=== PATIENT | female | born 1995 | race African-American/Black ===

== ENCOUNTER 2018-09-17 12:05 | Emergency (ER) | payer OTHER ==
--- NOTE | 2018-09-17 13:24 | ER Document Report ---
ED Medical Screen (RME) - General Chief Complaint: Vaginal Bleeding Stated Complaint: VAGINAL BLEEDING Time Seen by Provider: 09/17/18 13:20 Mode of Arrival: Ambulatory Information source: Patient Notes: Patient presents to the emergency department with complaints of heavy vaginal bleeding, pad every hour for the past week. She reports she is 4 months. She had heavy bleeding after the child was born a condo tapered off and then after she had sex recently started bleeding heavenly. Patient ports she feels tired but denies other symptoms such as fever vomiting diarrhea. Patient reports she saw her HAND EMBROIDERER at her 6-week appointment but has not seen them since then. I have greeted and performed a rapid initial assessment of this patient. A comprehensive ED assessment and evaluation of the patient, analysis of test results and completion of the medical decision making process will be conducted by additional ED providers. Dictation of this chart was performed using voice recognition software; therefore, there may be some unintended grammatical errors. TRAVEL OUTSIDE OF THE [place] IN LAST 30 DAYS: No - Related Data Allergies/Adverse Reactions: No Known Allergies Allergy (Verified 09/17/18 13:07) Physical Exam - Vital signs Vitals: Temp Pulse Resp BP Pulse Ox 98.1 F 71 14 140/82 H 100 09/17/18 12:35 09/17/18 12:35 09/17/18 12:35 09/17/18 12:35 09/17/18 12:35 Course - Vital Signs Vital signs: Temp Pulse Resp BP Pulse Ox 98.1 F 71 14 140/82 H 100 09/17/18 12:35 09/17/18 12:35 09/17/18 12:35 09/17/18 12:35 09/17/18 12:35
[2018-09-17 13:47] LABS: ABSOLUTE EOSINOPHILS # (AUTO) 0.1 10^3/uL (0.0-0.6); ABSOLUTE LYMPHOCYTES (AUTO) 1.8 10^3/uL (0.5-4.7); ABSOLUTE MONOCYTES (AUTO) 0.4 10^3/uL (0.1-1.4); ABSOLUTE NEUT (AUTO) 3.7 10^3/uL (1.7-8.2); BASOPHILS % (AUTO) 0.6 % (0-2); EOSINOPHILS % (AUTO) 1.2 % (0-6); HEMATOCRIT 33.8 % (36.0-47.0); HEMOGLOBIN 11.3 g/dL (12.0-15.5); LYMPHOCYTES % (AUTO) 29.3 % (13-45); MEAN CORPUSCULAR HEMOGLOBIN 27.7 pg (27.0-33.4); MEAN CORPUSCULAR HGB CONC 33.5 g/dL (32.0-36.0); MEAN CORPUSCULAR VOLUME 83 fl (80-97); MONOCYTES % (AUTO) 7.4 % (3-13); PLATELET COUNT 325 10^3/uL (150-450); RED BLOOD COUNT 4.09 10^6/uL (3.72-5.28); RED CELL DISTRIBUTION WIDTH 13.7 % (11.5-14.0); SEGMENTED NEUTROPHILS % (AUTO) 61.5 % (42-78); TOTAL CELLS COUNTED % (AUTO) 100 %; WHITE BLOOD COUNT 6.1 10^3/uL (4.0-10.5)
[2018-09-17 14:09] LABS: ALANINE AMINOTRANSFERASE 23 U/L (9-52); ALBUMIN 3.7 g/dL (3.5-5.0); ALKALINE PHOSPHATASE 70 U/L (38-126); ANION GAP 8 (5-19); ASPARTATE AMINO TRANSFERASE 21 U/L (14-36); BILIRUBIN,DIRECT 0.1 mg/dL (0.0-0.4); BILIRUBIN,TOTAL 0.5 mg/dL (0.2-1.3); BLOOD UREA NITROGEN 10 mg/dL (7-20); CALCIUM 9.5 mg/dL (8.4-10.2); CARBON DIOXIDE 28 mmol/L (22-30); CHLORIDE 107 mmol/L (98-107); GLUCOSE 75 mg/dL (75-110); POTASSIUM 3.8 mmol/L (3.6-5.0); SODIUM 142.7 mmol/L (137-145)
--- NOTE | 2018-09-17 15:50 | ER Document Report ---
ED General - General Chief Complaint: Vaginal Bleeding Stated Complaint: VAGINAL BLEEDING Time Seen by Provider: 09/17/18 13:20 Mode of Arrival: Ambulatory TRAVEL OUTSIDE OF THE [place] IN LAST 30 DAYS: No - HPI Notes: Patient is a 22-year-old female who presents to the emergency department complaining of heavy vaginal bleeding increased over the past week, but has had bleeding intermittently for the past 4 months since giving . Patient states that she had a full-term without any complications aside from hypertension. She is not currently breast-feeding. Patient states that she did have heavy bleeding about 4 years ago and was placed on control at that time. Patient states that she is going through about 1 pad per hour at this time. She is otherwise eating and drinking without difficulty. She is urinating normally and having normal bowel movements. No other concerns or complaints. No concern of STD/STI. Denies any headache, fever, neck pain, URI, sore throat, chest pain, palpitations, syncope, cough, shortness of breath, wheeze, dyspnea, abdominal pain, nausea/vomiting/diarrhea, urinary retention, dysuria, hematuria, back pain, or rash. - Related Data Allergies/Adverse Reactions: No Known Allergies Allergy (Verified 09/17/18 13:07) Past Medical History - General Information source: Patient - Social History Smoking Status: Never Smoker Chew tobacco use (# tins/day): No Frequency of alcohol use: None Drug Abuse: None Family History: Reviewed & Not Pertinent Patient has suicidal ideation: No Patient has homicidal ideation: No Renal/ Medical History: Denies: Hx Peritoneal Dialysis Review of Systems - Review of Systems -: Yes All other systems reviewed and negative Physical Exam - Vital signs Vitals: Temp Pulse Resp BP Pulse Ox 98.1 F 71 14 140/82 H 100 09/17/18 12:35 09/17/18 12:35 09/17/18 12:35 09/17/18 12:35 09/17/18 12:35 - Notes Notes: PHYSICAL EXAMINATION: GENERAL: Well-appearing, well-nourished and in no acute distress. EYES: Pupils equal round and reactive to light, extraocular movements intact, sclera anicteric, conjunctiva are normal. NECK: Normal range of motion, supple without lymphadenopathy LUNGS: Breath sounds clear to auscultation bilaterally and equal. No wheezes rales or rhonchi. HEART: Regular rate and rhythm without murmurs, rubs, gallops. ABDOMEN: Soft, nontender, nondistended abdomen. No guarding, no rebound. No masses appreciated. Normal bowel sounds present. No CVA tenderness bilaterally. : deferred Musculoskeletal: FROM to passive/active. Strength 5+/5. Extremities: No cyanosis, clubbing, or edema b/l. Peripheral pulses 2+. Capillary refill less than 3 seconds. NEUROLOGICAL: Normal speech, normal gait. PSYCH: Normal mood, normal affect. SKIN: Warm, Dry, normal turgor, no rashes or lesions noted. Course - Re-evaluation Re-evalutation: 09/17/18 17:41 I did speak with Dr[address] Wilde OBGYN, who would recommend depo shot 150mg IM. Patient is an afebrile, well-hydrated, 22-year-old female who presents to the ED with dysmenorrhea. Vitals are acceptable without any significant tachycardia, tachypnea, or hypoxia. PE is otherwise unremarkable. CBC (hgb 11.3, mild low), CMP, urinalysis, and hCG are unremarkable for any acute pathology. Patient is nontoxic-appearing is tolerating p.o. without any difficulties. Transvaginal ultrasound was also acceptable. Pt's abd is soft and non-tender. No other labs or imaging warranted at this time based on H&P. Low suspicion/risk for acute appendicitis, bowel obstruction, acute cholecystitis, acute cholangitis, per forated diverticulitis, incarcerated hernia, pancreatitis, perforated ulcer, peritonitis, sepsis, pelvic inflammatory disease, ectopic , tubo- ovarian abscess, ovarian torsion, or other systemic emergent condition at this time. Patient is aware that her condition can change from initial presentation and she needs to monitor symptoms closely and seek medical attention if any acute changes. Conservative measures otherwise for symptoms. Recheck with your PCM/OBGYN in 3-5 days. Return to the ED with any worsening/concerning symptoms otherwise as reviewed in discharge. Patient is in agreement. - Vital Signs Vital signs: Temp Pulse Resp BP Pulse Ox 98.1 F 69 16 116/76 98 09/17/18 17:05 09/17/18 17:05 09/17/18 17:05 09/17/18 17:05 09/17/18 17:05 - Laboratory Result Diagrams: 09/17/18 13:34 09/17/18 13:34 Laboratory results interpreted by me: 09/17/18 13:34 Hgb 11.3 L Hct 33.8 L Discharge - Discharge Clinical Impression: Dysmenorrhea Condition: Stable Disposition: HOME, SELF-CARE Instructions: Dysmenorrhea ([facility]) Additional Instructions: Maintain fluid intake Proper hygienic technique Keep the skin clean Tylenol/ibuprofen as needed F/u with your PCM/OBGYN in 3-5 days for a recheck Return to the ED with any development of MAKI/fever, trouble with vision, eye redness, worsening pain, urethral discharge, urinary retention, blood in the urine, flank pain, abdominal pain, n/v, Chest Pain, shortness of breath, joint pains, trouble breathing, or any other worsening/concerning symptoms as needed otherwise. Referrals: [facility] [Provider Group] - Follow up as needed
--- NOTE | 2018-09-17 17:09 | RADIOLOGY REPORT (SQ) ---
EXAM DESCRIPTION: U/S NON OB PEL TV W/DOPPLER COMPLETED DATE/TIME: 09/17/2018 4:35 pm REASON FOR STUDY: heavy bleeding, post x4mos COMPARISON: None. TECHNIQUE: Dynamic and static grayscale images acquired of the pelvis via transvaginal approach and recorded on PACS. Additional selected color Doppler and spectral images recorded. LIMITATIONS: None. FINDINGS: UTERUS: Contour normal. No mass. ENDOMETRIAL STRIPE: No focal or generalized thickening. No masses. CERVIX: No nabothian cysts. RIGHT OVARY AND DOPPLER: Normal vascular flow. Normal size. 2 cm simple appearing cyst. LEFT OVARY AND DOPPLER: Normal size. No worrisome masses. Normal arterial vascular flow without evide nce for torsion. FREE FLUID: Trace amount. OTHER: No other significant finding. MEASUREMENTS: UTERUS: 8.9 x 4.9 x 5.5 cm ENDOMETRIAL STRIPE: 11 mm RIGHT OVARY: 3.3 x 2.7 x 2.7 cm LEFT OVARY: 3.1 x 2.1 x 2.4 cm IMPRESSION: Small cyst right ovary. No explanation for vaginal bleeding. TECHNICAL DOCUMENTATION: JOB ID: [id number]- All Rights Reserved Rev Reading location - IP/workstation name: [email or web address]
[2018-09-17 17:14] VITALS: BP 116/76
[2018-09-17] MEDS ORDERED: MEDROXYPROGESTERONE ACET INJ 150 MG/1 ML VIAL IM ONE (17:40)
== END 2018-09-17 18:04 | disposition home or self-care (01) ==
LOC: ER 12:05
DX: N94.6 Dysmenorrhea, unspecified (principal)
CPT/HCPCS: 99284; 96372; 36415; 84703; 85025; 80053; 76830; 93976; J1050